=== PATIENT | male | born 2000 | race Caucasian/White ===

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

== ENCOUNTER 2022-12-15 13:42 | Emergency (ER) | payer MEDICAID ==
[2022-12-15] MEDS ORDERED: Lidocaine 1% 10 ML MDV INJECT ONE (13:56)
== END 2022-12-15 15:15 | disposition home or self-care (01) ==
LOC: JD.ED 13:42
DX: S71.111A Laceration without foreign body, right thigh, initial encounter (principal); J45.909 Unspecified asthma, uncomplicated; Z88.0 Allergy status to penicillin; W26.0XXA Contact with knife, initial encounter
CPT/HCPCS: 12001; 99282; J3490

== ENCOUNTER 2022-12-24 12:01 | Emergency (ER) | payer MEDICAID, OTHER | END 2022-12-24 12:16 | disposition home or self-care (01) | LOC: JD.ED 12:01 | DX: Z53.21 Procedure and treatment not carried out due to patient leaving prior to being seen by health care provider (principal) ==

== ENCOUNTER 2023-03-09 20:42 | Emergency (ER) | payer MEDICAID ==
[2023-03-09] MEDS ORDERED: Bupivacaine 0.5% 10 ML SDV INJECT ONE (22:46)
[2023-03-09] MEDS ORDERED: Lidocaine 1% 10 ML MDV INJECT ONE (22:46)
== END 2023-03-09 23:32 | disposition home or self-care (01) ==
LOC: JD.ED 20:42
DX: S62.632A Displaced fracture of distal phalanx of right middle finger, initial encounter for closed fracture (principal); S60.141A Contusion of right ring finger with damage to nail, initial encounter; W22.8XXA Striking against or struck by other objects, initial encounter; Y92.009 Unspecified place in unspecified non-institutional (private) residence as the place of occurrence of the external cause
CPT/HCPCS: 11740; 73140; 99283; J3490